=== PATIENT | female | born 1980 | race Caucasian/White ===

== ENCOUNTER 2017-11-19 20:15 | Emergency (ER) | payer OTHER ==
[~2017-11-19] VITALS: Ht 170.2 cm; Wt 81.6 kg
[~2017-11-19 20:15] MED LIST: FLEXERIL10 MG PO; IBUPROFEN800 MG PO; PEPCID40 MG PO; ZOFRAN4 M1 SL
[2017-11-19 20:27] VITALS: BP 123/85
--- NOTE | 2017-11-19 21:43 | ED MVC/FALL/TRAUMA COMPLAINT ---
History of Present Illness General Chief Complaint: Upper Extremity Injury Stated Complaint: INJURY TO UPPER RT SIDE/RIBCAGE AREA Source: patient, old records Exam Limitations: no limitations Vital Signs & Intake/Output Vital Signs & Intake/Output Vital Signs Date Time Temp Pulse Resp B/P B/P Pulse O2 O2 Flow FiO2 Mean Ox Delivery Rate 11/19 2026 99.0 68 20 123/85 98 Room Air ED Intake and Output 11/20 0000 11/19 1200 Intake Total 200 Output Total Balance 200 Intake, Oral 200 Patient 180 lb Weight Weight Reported by Patient Measurement Method Allergies Coded Allergies: NO KNOWN ALLERGIES (10/14/13) Reconcile Medications No Known Home Medications Triage Note: PT HERE WITH C/O RIGHT RIB PAIN S/P PATIENT CARE. PT TRPORTS THAT SHE WAS HELPING A PT WITH ADL'S AND THE PATIENT PUT HER ELBOW INTO HER RIGHT RIB. PT STATES THAT SHE FELT LIKE HER STOMACH "WENT UP". PT REPORTS THAT IT HURTS WHEN SHE LAUGHS OR COUGHS AND ALSO WITH PALAPTION. Triage Nurses Notes Reviewed? yes Onset: Abrupt Duration: hour(s): (1), constant Timing: recent history Severity: moderate Severity Numbers: 5 Injuries/Fall Location: chest Method of Injury: direct blow Loss of Consciousness: no loss of consciousness No Modifying Factors: none Associated Symptoms: denies : No Patient currently breastfeeds: No HPI: 37 year old female presents to ER for evaluation complaining of right sided rib pain after she states she was accidentally elbowed in her rib while helping a patient. Pain is worse with inspiration and palpation. No cough no hemoptysis no shortness of breath. No fever no chills. She is not taken anything for the pain. No modifying factors or associated symptoms otherwise. (Harry Myrick) Past History Travel History Traveled to [place] past 21 day No Medical History Any Pertinent Medical History? none Neurological: NONE EENT: NONE Cardiovascular: NONE Respiratory: NONE Gastrointestinal: NONE Hepatic: NONE Renal: NONE Musculoskeletal: NONE Surgical History Surgical History: N Psychosocial History What is your primary language Thai Tobacco Use: Never used ETOH Use: denies use Illicit Drug Use: denies illicit drug use Family History Hx Contributory? No (Harry Myrick) Review of Systems Review of Systems Constitutional: Reports: see HPI. Comments Review of systems: See HPI, All other systems negative. Constitutional, no chills no fever HEENT: no sore throat no congestion Cardiovascular: No chest pain Skin: no rashes, no change in skin Respiratory: No dyspnea no cough GI: No nausea no vomiting, no diarrhea Muscle skeletal: see hpi, No joint pain, no back pain, no neck pain, Neurologic: no headache Heme/endocrine: No bruising (Harry Myrick) Physical Exam Physical Exam General Appearance: well developed/nourished, no apparent distress, alert, awake Comments: Well-developed well-nourished patient in no apparent distress. HEENT: Atraumatic, extraocular motion intact Neck: Supple, FROM Back: FROM Cardiovascular: Regular rate and rhythms no murmurs rubs or gallops, Respiratory: Chest tender. no ecchymosis,There were no bony deformities, no asymmetry. No respiratory distress. Patient speaking in full complete sentences. Breath sounds clear to auscultation bilaterally: NO W/R/R Extremities: full range of motion Neuro: awake, alert, and oriented to person, place and time. There were no obvious focal neurologic abnormalities. Skin: Warm & dry;No appreciable rash on exposed skin Psych: Mood affect normal, normal memory normal judgment. Core Measures ACS in differential dx? No CVA/TIA Diagnosis No Sepsis Present: No Sepsis Focused Exam Completed? No (Harry Myrick) Progress Differential Diagnosis: pnemothorax, RIBFX, SPRAIN, CONTUSION Plan of Care: Current Medications Sig/Romulo Start time Last Medication Dose Stop Time Status Admin Acetaminophen 975 MG ONCE ONE 11/19 2199 UNVr (Tylenol) 11/19 2200 Patient medicated with Tylenol by mouth x-rays ordered I discussed with the patient at length all of their results. I had an extensive conversation regarding need for close follow up with their primary care physician this week as well as return precautions. I answered all of their questions, they feel comfortable with the plan and follow-up care. Diagnostic Imaging: Viewed by Me: Radiology Read. Discussed w/RAD: Radiology Read. Radiology Impression: PATIENT: TASHA AG PRESENT AGE: 37 PATIENT ACCOUNT NO: [id number] : 78 LOCATION: [facility] ORDERING PHYSICIAN: Harry GONG SERVICE DATE: 11/19/17-2031 EXAM TYPE: RAD - XRY-RIBS UNILATERAL-RIGHT EXAMINATIONS: CHEST 1 VIEW AND RIGHT RIBS CLINICAL INFORMATION: Pain following injury. COMPARISON: 08/11/2017. TECHNIQUE: A PA radiograph of the chest was obtained in addition to several views of the right ribs. FINDINGS: The cardiac silhouette is not enlarged. The mediastinal and hilar contours are unremarkable. There are neither pleural effusions nor pneumothoraces. There are no consolidations. The osseous structures are unremarkable. Specifically, no rib fractures are identified. IMPRESSION: No evidence for acute disease. Specifically, no rib fractures identified. DICTATED BY: Rolan Marcos MD DATE/TIME DICTATED:11/19/172148 CURRICULUM COACH: SHAILESH DATE/TIME TRANSCRIBED:11/19/172148 CONFIDENTIAL, DO NOT COPY WITHOUT APPROPRIATE AUTHORIZATION. <Electronically signed in Other Vendor System> SIGNED BY: Rolan Marcos MD 11/19/172153 (Haryr Myrick) Departure Departure Time of Disposition: 2158 Disposition: HOME OR SELF CARE Condition: Stable Clinical Impression Primary Impression: Rib contusion Referrals: Manuel Glynn MD (PCP/Family) Additional Instructions: rest, ice tylenol or motrin for pain. follow up with occupational health or your primary care if symptoms persist. return with any concerns Departure Forms: Customer Survey [employer] Employee Acc Report General Discharge Information Prescriptions: Current Visit Scripts No Known Home Medications (Harry Myrick) PA/EDUCATIONAL PSYCHOLOGIST Co-Sign Statement Statement: ED Attending supervision documentation- [] I saw and evaluated the patient. I have also reviewed all the pertinent lab results and diagnostic results. I agree with the findings and the plan of care as documented in the PA's/EDUCATIONAL PSYCHOLOGIST's documentation. [x] I have reviewed the ED Record and agree with the PA's/EDUCATIONAL PSYCHOLOGIST's documentation. [] Additions or exceptions (if any) to the PAs/EDUCATIONAL PSYCHOLOGIST's note and plan are summarized below: [] (Asaf CAT,Bryan Jurado)
--- NOTE | 2017-11-19 21:54 | RADIOLOGY REPORT ---
EXAMINATIONS: CHEST 1 VIEW AND RIGHT RIBS CLINICAL INFORMATION: Pain following injury. COMPARISON: 08/11/2017. TECHNIQUE: A PA radiograph of the chest was obtained in addition to several views of the right ribs. FINDINGS: The cardiac silhouette is not enlarged. The mediastinal and hilar contours are unremarkable. There are neither pleural effusions nor pneumothoraces. There are no consolidations. The osseous structures are unremarkable. Specifically, no rib fractures are identified. IMPRESSION: No evidence for acute disease. Specifically, no rib fractures identified.
== END 2017-11-19 22:04 ==
LOC: ERH 20:15
DX: S20.211A Contusion of right front wall of thorax, initial encounter (principal); W51.XXXA Accidental striking against or bumped into by another person, initial encounter; Y93.89 Activity, other specified; Y92.9 Unspecified place or not applicable
CPT/HCPCS: 71100-RT

== ENCOUNTER 2018-03-30 19:39 | Emergency (ER) | payer OTHER ==
[~2018-03-30] VITALS: Ht 157.5 cm; Wt 81.6 kg
--- NOTE | 2018-03-30 19:56 | ED AMS/SEIZURE/WEAK/DIZZY ---
History of Present Illness General Chief Complaint: General Adult Stated Complaint: "DIZZY" Source: patient Exam Limitations: no limitations Vital Signs & Intake/Output Vital Signs & Intake/Output Vital Signs Date Time Temp Pulse Resp B/P B/P Pulse O2 O2 Flow FiO2 Mean Ox Delivery Rate 03/30 1949 98.8 69 20 119/81 99 Room Air Allergies Coded Allergies: NO KNOWN ALLERGIES (10/14/13) Reconcile Medications Meclizine HCl 25 MG TABLET 1 TAB PO TIDPRN PRN VERTIGO Ondansetron (Zofran Odt) 4 MG TAB.RAPDIS 1 TAB SL TID PRN NAUSEA Triage Note: PT HERE WITH C/O DIZZINESS AND SPINNING. PT REPORTS SHE JUST ATE AND CHECKED HER BS "WHICH IS FINE". Triage Nurses Notes Reviewed? yes Onset: Abrupt Duration: hour(s): Timing: recent history Injury Environment: home Severity: mild Associated Symptoms: worse w/ movement : No Patient currently breastfeeds: No HPI: 37 yo woman presents with vertigo x 1 hour. She notes that she felt dizzy, suddenly, worse with head movement, associated with mild nausea. She notes sinus congestion and "stuffy nose.... I have some allergies." She notes no fever, chills, headache, chest pain, shortness of breath. She is otherwise well. Past History Travel History Traveled to [place] past 21 day No Medical History Any Pertinent Medical History? see below for history Neurological: NONE EENT: NONE Cardiovascular: NONE Respiratory: NONE Gastrointestinal: NONE Hepatic: NONE Renal: NONE Musculoskeletal: NONE Psychiatric: NONE Endocrine: NONE Blood Disorders: NONE Cancer(s): NONE TREE FALLER/Reproductive: NONE Surgical History Surgical History: N Psychosocial History What is your primary language Malaysian Tobacco Use: Never used ETOH Use: denies use Illicit Drug Use: denies illicit drug use Family History Hx Contributory? No Review of Systems Review of Systems Constitutional: Reports: no symptoms. EENTM: Reports: no symptoms. Respiratory: Reports: no symptoms. Cardiovascular: Reports: no symptoms. GI: Reports: no symptoms. Genitourinary: Reports: no symptoms. Musculoskeletal: Reports: no symptoms. Skin: Reports: no symptoms. Neurological/Psychological: Reports: no symptoms. Hematologic/Endocrine: Reports: no symptoms. Immunologic/Allergic: Reports: no symptoms. All Other Systems: Reviewed and Negative Physical Exam Physical Exam General Appearance: well developed/nourished, mild distress Head: atraumatic, normal appearance Eyes: Bilateral: normal appearance, PERRL, EOMI. Ears, Nose, Throat: normal pharynx, normal ENT inspection Neck: normal inspection, supple, full range of motion Respiratory: normal breath sounds, chest non-tender, no respiratory distress, quiet respiration, lungs clear Cardiovascular: regular rate/rhythm Gastrointestinal: normal bowel sounds, soft, non-tender, no organomegaly Back: normal inspection, normal range of motion, vertebral tenderness Extremities: normal range of motion Neurologic/Psych: awake, alert, oriented x 3, vertigo elicited with rapid head movement Skin: intact, normal color, warm/dry Core Measures ACS in differential dx? No CVA/TIA Diagnosis No Sepsis Present: No Sepsis Focused Exam Completed? No Progress Differential Diagnosis: vertigo vs dehydration vs other. Plan of Care: Orders Procedure Date/time Status MISTAKE 03/30 1946 Active URINALYSIS 03/30 1941 Complete LIPASE 03/30 1941 Complete HEPATIC FUNCTION PANEL 03/30 1941 Complete HUMAN BETA HCG SCREEN 03/30 1941 Complete CBC WITHOUT DIFFERENTIAL 03/30 1941 Complete BASIC METABOLIC PANEL 03/30 1941 Complete AMYLASE 03/30 1941 Complete EKG 03/30 1941 Active Current Medications Sig/Romulo Start time Last Medication Dose Stop Time Status Admin Meclizine HCl 25 MG ONCE ONE 03/30 2000 CAN (Antivert) 03/30 2001 Laboratory Tests 03/30/182030: Urinalysis LIGHT H, Urine Color YEL, Urine Clarity CLEAR, Urine pH 6.0, Ur Specific [place] >= 1.030, Urine Protein NEG, Urine Ketones NEG, Urine Nitrite NEG, Urine Bilirubin NEG, Urine Urobilinogen 0.2, Ur Leukocyte Esterase TRACE H , Ur Microscopic SEDIMENT EXAMINED, Urine RBC 1-3, Urine WBC 5-10 H, Ur Epithelial Cells MANY H, Urine Bacteria FEW H, Urine Mucus FEW, Urine Hemoglobin SMALL H, Urine Glucose NEG 03/30/182020: Anion Gap 7, Estimated GFR > 60, BUN/Creatinine Ratio 18.8, Glucose 90, Calcium 9.1, Total Bilirubin 0.2, Direct Bilirubin 0.2, AST 18, ALT 31, Alkaline Phosphatase 56, Total Protein 6.9, Albumin 4.4, Amylase 51, Lipase 109, Total Beta HCG NEGATIVE, CBC w Diff NO MAN DIFF REQ, RBC 4.49, MCV 88.3, MCH 29.9, MCHC 33.8, RDW 13.4, MPV 8.8, Gran % 59.6, Lymphocytes % 32.7, Monocytes % 5.4, Eosinophils % 2.0, Basophils % 0.3, Absolute Granulocytes 4.5, Absolute Lymphocytes 2.4, Absolute Monocytes 0.4, Absolute Eosinophils 0.2, Absolute Basophils 0 Initial ED EKG: SINUS, INCOMPLETE RBBB Departure Departure Disposition: HOME OR SELF CARE Condition: Stable Clinical Impression Primary Impression: Vertigo Referrals: Manuel Glynn MD (PCP/Family) Departure Forms: Customer Survey General Discharge Information Prescriptions: Current Visit Scripts Meclizine HCl 1 TAB PO TIDPRN PRN VERTIGO #30 TAB Ondansetron (Zofran Odt) 1 TAB SL TID PRN NAUSEA #10 TAB Comments 03/30/18, 21:11... feels well after meclizine and zofran... feels comfortable going back to work. discussed at length... close follow up advised.
[2018-03-30 20:31] LABS: ABSOLUTE BASOPHIL COUNT 0 /CUMM (0.0-0.2); ABSOLUTE EOSINOPHIL COUNT 0.2 /CUMM (0.0-0.7); ABSOLUTE GRANULOCYTE CT 4.5 /CUMM (1.4-6.5); ABSOLUTE LYMPH COUNT 2.4 /CUMM (1.2-3.4); ABSOLUTE MONOCYTE COUNT 0.4 /CUMM (0.10-0.60); BASOPHIL % 0.3 % (0.0-2.0); GRANULOCYTE % 59.6 % (42.2-75.2); HEMATOCRIT 39.6 % (37-47); MEAN CORPUSCULAR HGB 29.9 PG (27.0-31.0); MEAN CORPUSCULAR HGB CONC 33.8 G/DL (33.0-37.0); MEAN CORPUSCULAR VOLUME 88.3 FL (81.0-99.0); MEAN PLATELET VOLUME 8.8 FL (7.4-10.4); PLATELET COUNT 245 /CUMM (130-400); RBC DISTRIBUTION WIDTH 13.4 % (11.5-14.5); RED BLOOD CELL CT 4.49 /CUMM (4.20-5.40); WHITE BLOOD CELL COUNT 7.5 /CUMM (4.8-10.8)
[2018-03-30] MEDS ORDERED: ZOFRAN ODT4 M1 SL (21:11)
[2018-03-30] MEDS ORDERED: MECLIZINE HCL25 MG PO (21:11)
[2018-03-30 21:40] VITALS: BP 121/72
== END 2018-03-30 21:40 ==
LOC: ERH 19:39
PROVIDERS: Pediatrics
DX: R42 Dizziness and giddiness (principal)
CPT/HCPCS: 81001; 93005; 93010; J3101